=== PATIENT | female | born 1940 | race Caucasian/White ===

== ENCOUNTER 2021-03-26 11:28 | Outpatient (CLI) | payer MEDICARE, BC | END 2021-03-26 11:29 | disposition home or self-care (01) | LOC: CSHCT 11:28 | PROVIDERS: ATTEND Internal Medicine Cardiovascular Disease | DX: R06.02 Shortness of breath (principal); I48.19 Other persistent atrial fibrillation; Z95.818 Presence of other cardiac implants and grafts | CPT/HCPCS: 71275; 82565 ==